=== PATIENT | male | born 1955 | race Caucasian/White ===

== ENCOUNTER 2017-04-03 07:05 | Inpatient (IN) ==
--- NOTE | 2017-04-02 16:03 | Discharge Summary ---
<Dedra Aldana E - Last Filed: 04/02/17 16:01> Date of Encounter: 04/02/17 - Discharge Diagnosis (1) Arthritis of right knee Priority: Primary Status: Chronic (2) HTN (hypertension) Priority: Secondary Status: Chronic Qualifiers: Hypertension type: unspecified Qualified Code(s): I10 - Essential (primary ) hypertension (3) ARELY (obstructive sleep apnea) Priority: Secondary Status: Chronic (4) GERD (gastroesophageal reflux disease) Priority: Secondary Status: Chronic Qualifiers: Esophagitis presence: esophagitis presence not specified Qualified Code(s) : K21.9 - Gastro-esophageal reflux disease without esophagitis (5) 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 Bridging with Lovenox. (9) Obesity (BMI 30-39.9) Priority: Secondary Status: Chronic - Discharge Medications Home Medications: Acetaminophen [Tylenol] 1,000 mg PO Q6HR PRN 03/21/17 [History] Citalopram Hydrobromide [Celexa] 40 mg PO DAILY 03/21/17 [History] Lisinopril/Hydrochlorothiazide [Zestoretic 10-12.5 mg Tablet] 1 tab PO DAILY 08/31 [History] Meloxicam [Mobic] 15 mg PO DAILY 03/21/17 [History] Warfarin [Coumadin] 10 mg PO QPM 03/21/17 [History] cephALEXin [Keflex] 500 mg PO QID #40 capsule 03/21/17 [Rx] OxyCODONE Immed Rel [Roxicodone 5 MG] 5 mg PO Q6HR PRN 7 Days #28 tablet [Rx] Enoxaparin [Lovenox] 40 mg SQ DAILY 04/03/17 [History] Pantoprazole Sodium [Protonix] 40 mg PO DAILY 04/03/17 [History] Allergies/Adverse Reactions: 3 Allergy/AdvReac Type Severity Reaction Status Date / Time No Known Allergies Allergy Verified 03/21/17 14:12 Primary care physician: PCP NONE - Patient Status Disposition: Home Health Service Condition: Good - Discharge Instructions Follow Up With: NONE,PCP [Primary Care Provider] - - Hospital Course Hospital course: Mr. Lechuga is a 61 year old male - Time Spent with Patient Total time spent providing and/or coordinating discharge services: <Dillan Cabrera - Last Filed: 04/05/17 08:08> Date of Encounter: 04/05/17 Time of Encounter: 08:08 - Discharge Diagnosis (1) Status post total right knee replacement Priority: Primary Status: Acute (2) Arthritis of right knee Priority: Primary Status: Chronic (3) HTN (hypertension) Priority: Secondary Status: Chronic Qualifiers: Hypertension type: unspecified Qualified Code(s): I10 - Essential (primary ) hypertension (4) ARELY (obstructive sleep apnea) Priority: Secondary Status: Chronic (5) GERD (gastroesophageal reflux disease) Priority: Secondary Status: Chronic Qualifiers: Esophagitis presence: esophagitis presence not specified Qualified Code(s) : K21.9 - Gastro-esophageal reflux disease without esophagitis (6) 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 Lechuga is a 61 year old male Status post right total knee replacement. The patient had an uneventful postoperative course. They received antibiotics and physical therapy and were discharged in stable condition. There will follow -up in the office in 2 weeks. - Time Spent with Patient Total time spent providing and/or coordinating discharge services:
[2017-04-03] MEDS ORDERED: Ethanol\\Acetic Acid\\Na Ace\\Ben 1,000 ML IRRIG.SOLN IR ONE (07:14)
[2017-04-03] MEDS ORDERED: *HR* FentaNYL (PF) 100 MCG/2 ML VIAL ONE (07:20)
[2017-04-03] MEDS ORDERED: *HR* Propofol 200 MG/20 ML VIAL IVP ONE (07:20)
[2017-04-03] MEDS ORDERED: Lidocaine -MPF 2% 2 ML VIAL ONE (07:20)
[2017-04-03] MEDS ORDERED: *HR* Midazolam HCl 2 MG/2 ML VIAL ONE (07:21)
[2017-04-03] MEDS ORDERED: Lidocaine -MPF 1% 2 ML VIAL ID ONE (07:38)
[2017-04-03] MEDS ORDERED: CeFAZolin Syr 2,000MG/20 ML 2,000 MG/20 ML SYRINGE IVPB ONE (07:38)
[2017-04-03] MEDS ORDERED: Ringers Solution, Lactated 1,000 ML IVC SCH (07:45)
--- NOTE | 2017-04-03 07:56 | History & Physical Report ---
Date of Encounter: 04/03/17 Time of Encounter: 07:55 24 Hour HP Update - Instructions Instructions: If the History and Physical is less than 30 days old and was completed prior to A.M. admission and or procedure and has NOT been updated on calendar day of procedure please complete this update prior to performing procedure. - Update Patient reports changes in Medical Condition: No Changes in examination, assessment, or condition: No Changes in Medication: No Preop tests/diagnostics Reviewed: Yes Surgery Remains Indicated: Yes Consent for Planned Operative Procedure(s) Verified: Yes - Pre-Operative Checklist Preoperative Checklist Indicated: No Prophylactic Antibiotic Ordered: Yes Is VTE Prophylaxis Indicated?: Yes
[2017-04-03] MEDS ORDERED: ROPIVACAINE HCL/PF 0.5% 30 ML VIAL ONE (07:58)
--- NOTE | 2017-04-03 08:01 | Anesthesia Evaluation PreOp ---
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 History: TIA, Other (A/D) Other Medical History: GERD Anesthesia History: No Prior Anesthetic Complications, Past Anesthesia (Knee scope) Alcohol Use: none Drug use: none Medications and Allergies Acetaminophen [Tylenol] 1,000 mg PO Q6HR PRN 03/21/17 [History] Citalopram Hydrobromide [Celexa] 40 mg PO DAILY 03/21/17 [History] Lisinopril/Hydrochlorothiazide [Zestoretic 10-12.5 mg Tablet] 1 tab PO DAILY 08/31 [History] Meloxicam [Mobic] 15 mg PO DAILY 03/21/17 [History] Warfarin [Coumadin] 10 mg PO QPM 03/21/17 [History] cephALEXin [Keflex] 500 mg PO QID #40 capsule 03/21/17 [Rx] OxyCODONE Immed Rel [Roxicodone 5 MG] 5 mg PO Q6HR PRN 7 Days #28 tablet [Rx] Enoxaparin [Lovenox] 40 mg SQ DAILY 04/03/17 [History] Pantoprazole Sodium [Protonix] 40 mg PO DAILY 04/03/17 [History] 3 Allergy/AdvReac Type Severity Reaction Status Date / Time No Known Allergies Allergy Verified 03/21/17 14:12 - Meds/Allergy Pre-op Review Medications Reviewed: Yes Allergies Reviewed: Yes Beta Blockers on Current Med List: No Anesthesia Results - Labs Laboratory Tests 03/21/17 03/21/17 03/21/17 14:07 14:07 14:07 WBC 9.1 Hgb 14.2 Hct 41.9 Plt Count 344 INR 2.2 Sodium 139 Potassium 4.5 Chloride 104 Carbon Dioxide 22 BUN 23 Creatinine 1.04 - Imaging EKG: report reviewed (SINUS RHYTHM INFERIOR MYOCARDIAL INFARCTION, PROBABLY OLD) Anesthesia Exam O2 Sat Height 1.73 m Height 1.73 m Weight 108.862 kg Weight 108.862 kg O2 Sat by Pulse Oximetry 96 Vital Signs Temp Pulse Resp BP Pulse Ox 98.3 F 88 18 126/73 96 04/03/17 07:38 04/03/17 07:38 04/03/17 07:38 04/03/17 07:38 04/03/17 07:38 - HEENT Pupil (Motor): Pupils equal, EOMI Mallampati: III Teeth: Normal Oral Opening: Greater than 3 - CHOCOLATE PACKER LOC: Oriented CHOCOLATE PACKER Motor: Normal RUE, Normal LUE, Normal RLE, Normal LLE, Normal Face CHOCOLATE PACKER Sensory: Normal: RUE, LUE, RLE, LLE, Face - Cardiac Rhythm: Regular Murmur: None JVD: No Carotid Bruit: No - Pulmonary Breath Sounds: bilateral Clear Respiratory Effort: Symmetrical - Additional Findings Coumadin - last dose taken 03/28/2017 Anesthesia Assess/Plan ASA Score: 3 Modified Shannon Scale for Level of Consciousness: Cooperative, oriented, and tranquil Anesthetic Plan: General, Regional (Right Fem. Nerve Block) Monitoring Plan: Standard Monitors Recovery Plan: PACU
[2017-04-03] MEDS ORDERED: Plasma-Lyte A (PH 7.4) 1,000 ML IVC SCH (08:15)
[2017-04-03] MEDS ORDERED: *HR* Promethazine 25 MG/ML VIAL IVP PRN (08:16)
[2017-04-03] MEDS ORDERED: *HR* Labetalol 20 MG/4 ML SYRINGE IVP PRN (08:16)
[2017-04-03] MEDS ORDERED: Acetaminophen IV 1,000 MG/100 ML INFUS..BTL ONE (08:55)
--- NOTE | 2017-04-03 09:00 | Anesthesia Procedures ---
Date of Encounter: 04/03/17 Time of Encounter: 08:50 Procedures: Anesthesia - Nerve Block Procedure Date: 04/03/17 Time: 08:50 Allergies/Adv Reactions: NKDA Surgical Procedure: Right Total Knee Checklist: Correct Patient Identifier, Correct procedure, History checked Correct side: Right Blood Thinner: No Monitor Applied: EKG, BP, Pulse Oximetry Supplemental Oxygen via Nasal Cannula (L/min): 2 Sedation: Versed (mg): 2 Sedation: Fentanyl (mcg): 100 Indication: Post Op Analgesia Pre-op Neuro Deficits: No Block Type: Femoral, Other (Ipac, VANESSA) Catheter placed: No Sterile Technique: Yes Ultrasound used: Yes Anatomy identified: Yes Visual spread of Local: Yes Neuro Stimulation: Yes Nerve Stimulator Range: >0.4 - 0.6 mA Blood on Needle Aspiration: No Smooth Injection of Local: Yes Pain with Injection of Local: No Prep: Chlorhexadine Needle: 22 x 50 mm Stimuplex Local: Ropivacaine (0.5% 30ml, femoral), Other (.25% bupivicaine with 8mg decadron 30ml, 20ml IPAC, 10 VANESSA) Volume (cc): 60ml total Number of Attempts: 1 Complications: None/effective block Vitals: Vital Signs 04/03/17 07:38 04/03/17 08:39 04/03/17 08:44 Temperature 98.3 F Pulse Rate 88 84 82 Respiratory Rate 18 16 12 Blood Pressure 126/73 145/84 121/88 O2 Sat by Pulse Oximetry 96 96 95 04/03/17 08:51 Temperature Pulse Rate 87 Respiratory Rate 12 Blood Pressure 125/76 O2 Sat by Pulse Oximetry 96
[2017-04-03] MEDS ORDERED: Ketamine *HR* 500 MG/10 ML MDV ONE (09:10)
[2017-04-03] MEDS ORDERED: Dexamethasone 4 MG/ML VIAL ONE (09:12)
[2017-04-03] MEDS ORDERED: EPHEDrine 50 MG/ML VIAL ONE (09:15)
[2017-04-03] MEDS ORDERED: *HR* Phenylephrine 10 MG/ML VIAL ONE (09:50)
[2017-04-03] MEDS ORDERED: Ketorolac 30 MG/ML VIAL ONE (10:05)
--- NOTE | 2017-04-03 10:12 | Orthopedic Operative Note ---
Date of procedure: 04/03/17 Pre-op diagnosis: Right knee arthritis Post-op diagnosis: same Procedure: Procedure: Right robotic-assisted Total knee replacement Estimated blood loss: 300 cc Hardware: Metal and polyethylene replacement. [place] Femur: 4 Tibia:4 PS insert: 11 Patella: 39 Exam Under anesthesia: Loss full extension 9 degrees varus alignment 8 degrees as calculated by the robot full flexion and no instability Procedural Notes: Grade 4 arthritic changes medial compartment grade 3 patellofemoral joint Operative procedure: The patient was brought to the operating room and placed on the operating room table. After general anesthesia was administered the operative knee was examined. Findings were noted in the exam under anesthesia. The operative extremity was prepped and draped in sterile surgical fashion. The patient received IV antibiotics prior to skin incision. A standard midline incision was made centered over the patella. The incision was made through the skin and subcutaneous tissue. A medial parapatellar tendon approach was performed. Care was taken to preserve tissue along the medial aspect of the patella. And to protect the patella tendon. The deep MCL was released off the medial tibia. The infra patella fat pad was excised. The patella was everted and cut was made at the level of the insertion of the quadriceps and patella tendon. The patella was sized to a 39 the guide was seated and the lug holes are drilled. Knee was brought into flexion. Patient noted to have a 4 arthritic changes medial compartment grade 3 patellofemoral joint. Steinmann pins were placed in the tibia and the femur for the tibial and femoral arrays respectively. Checkpoints were also placed in the tibia and the femur for calculation purposes. The knee including the femur and the tibial registered. Osteophytes , ACL and PCL were excised at this point. Extension was to and no varus and valgus stresses were assessed, 90 degrees of flexion varus and valgus stresses were assessed and components were adjusted on the computer for the robotic cut positions. Femoral cuts were made first with robotic assistance, these included the anterior cut posterior cuts chamfer cuts. Tibial cut was then performed with robotic assistance as well. Bone fragments were removed, as well as the medial and lateral meniscus. The size 4 femoral guide was seated box cut was made lug holes are drilled. The size 4 tibial tray was seated and prepared with the fin cutter. Trial reduction with the 11 PS Nicole revealed extension of 0 degree and full flexion, 3 degrees varus. No varus valgus instability. Trial reduction revealed excellent patella tracking. All trial components were removed all bony surfaces were irrigated. Tibia was cemented followed by the femur PS Nicole size 11 was seated and secured patella. Patient had similar findings for motion and stability. The knee was closed by the PA. The knee was then irrigated out with 2 L of pulse irrigation. The extensor mechanism was closed with #2 FiberWire suture and #2 PDS suture. The subcutaneous tissue was then irrigated and closed deep with #1 PDS suture superficially with 0 PDS suture and skin was closed with zip tie The patient was then placed in a sterile dressing and a postoperative brace extubated and transferred to recovery room in stable condition. Anesthesia: GETA Surgeon: Dillan Cabrera Condition: stable Disposition: PACU
[2017-04-03] MEDS: *HR* HYDROmorphone (PF) 1 MG/ML SYRINGE IVP PRN ×2 (10:53→11:00)
[2017-04-03 11:08] LABS: Hematocrit 39.3 % (37.5-50.1); Hemoglobin 13.2 g/dL (12.9-16.9)
--- NOTE | 2017-04-03 11:28 | Anesthesia Evaluation Post Op ---
Date of Encounter: 04/03/17 Time of Encounter: 11:27 - Vital Signs Vital Signs: Vital Signs/O2 Sat, Most Current Temp Pulse Resp BP Pulse Ox 97.5 F L 90 16 145/75 94 04/03/17 11:15 04/03/17 11:15 04/03/17 11:15 04/03/17 11:15 04/03/17 11:15 - Lungs Lungs: Clear Ascult./Percussion - Airway Airway: Non-obstructed - Cardiovascular Regular Rate - Mental Status Mental Status: Asleep with brisk response to light stimulation - Pain Pain Scale: 5 Pain Scale used: Numeric (1 - 10) - Nausea Vomiting Nausea Vomiting: Not Present - Hydration Hydration: Ice chips, Has not voided - Discharge PostOp Status: Transfer Patient to floor
[2017-04-03] MEDS ORDERED: *HR* OxyCODONE Immed Rel 5 MG TABLET PO PRN (11:42)
[2017-04-03] MEDS ORDERED: Sennosides 8.6 MG TABLET PO PRN (11:42)
[2017-04-03] MEDS ORDERED: MOM Conc 10 ML UD.LIQ PO PRN (11:42)
[2017-04-03] MEDS ORDERED: Naloxone 0.4 MG/ML INJ IVP PRN (11:42)
[2017-04-03] MEDS ORDERED: Ondansetron 4 MG/2 ML VIAL IVP PRN (11:42)
[2017-04-03] MEDS ORDERED: Temazepam 15 MG CAPSULE PO PRN (11:42)
[2017-04-03] MEDS: CeFAZolin Premix DUPLEX 2,000 MG/50 ML BAG IVPB SCH ×2 (13:12→19:25)
[2017-04-03] MEDS: Ringers Solution, Lactated 1,000 ML IVC SCH (16:21)
[2017-04-03] MEDS ORDERED: *HR* Warfarin 10 MG TABLET PO SCH (18:00)
[2017-04-03] MEDS ORDERED: *HR* Enoxaparin 30 MG/0.3 ML SYRINGE SQ SCH (18:00)
[2017-04-03] MEDS: *HR* Enoxaparin 30 MG/0.3 ML SYRINGE SQ SCH (19:00)
[2017-04-04] MEDS: *HR* Enoxaparin 30 MG/0.3 ML SYRINGE SQ SCH ×2 (05:45→18:23)
[2017-04-04] MEDS: *HR* OxyCODONE Immed Rel 5 MG TABLET PO PRN ×3 (05:49→18:24)
--- NOTE | 2017-04-04 06:48 | Orthopedics Progress Note ---
Date of Encounter: 04/04/17 Time of Encounter: 06:48 - Assessment and Plan (1) Status post total right knee replacement Current Visit: Yes Status: Acute (2) Arthritis of right knee Current Visit: No Status: Chronic (3) HTN (hypertension) Current Visit: No Status: Chronic Qualifiers: Hypertension type: unspecified Qualified Code(s): I10 - Essential (primary ) hypertension (4) ARELY (obstructive sleep apnea) Current Visit: No Status: Chronic (5) GERD (gastroesophageal reflux disease) Current Visit: No Status: Chronic Qualifiers: Esophagitis presence: esophagitis presence not specified Qualified Code(s) : K21.9 - Gastro-esophageal reflux disease without esophagitis (6) 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 Afebrile vital signs stable. Operative extremity: Neurovascularly intact Dressing clean dry and intact Calves nontender Assessment and plan: Continue with postoperative care hct 39 Objective Vital signs: Vital Signs Temp Pulse Resp BP Pulse Ox 04/04/17 04:00 99.5 F 97 16 107/64 93 04/03/17 19:43 97.4 F L 95 16 98/56 97 04/03/17 15:44 98.0 F 105 16 104/67 92 04/03/17 15:00 97.4 F L 98 18 110/72 94 04/03/17 13:00 97.3 F L 91 17 109/74 04/03/17 12:27 97.6 F 17 110/69 98 04/03/17 11:58 97.9 F 92 16 04/03/17 11:35 97.2 F L 88 16 132/78 92 04/03/17 11:25 86 16 126/78 92 04/03/17 11:15 97.5 F L 90 16 145/75 94 04/03/17 11:05 87 18 140/79 92 04/03/17 10:55 96 20 151/77 98 04/03/17 10:45 97.0 F L 76 16 132/81 96 04/03/17 08:51 87 12 125/76 96 04/03/17 08:44 82 12 121/88 95 04/03/17 08:39 84 16 145/84 96 04/03/17 07:38 98.3 F 88 18 126/73 96 Intake and Output 04/03/17 04/03/17 04/04/17 15:59 23:59 07:59 Intake Total 170 / 170 250 / 250 100 / 100 Output Total 300 / 300 Balance -130 / -130 250 / 250 100 / 100 Intake: IV Fluids 50 / 50 50 / 50 Ancef Premix DUPLEX 2,000 mg In 50 / 50 50 / 50 50 ml @ 100 mls/hr IVPB Q8H MALIHA Rx#:[id number] Oral 120 / 120 200 / 200 100 / 100 Output: Urine 0 / 0 Estimated Blood Loss 300 / 300 Other: Meal Dinner Percent of Meal Consumed 100% # Voids 1 1 - Labs CBC & BMP: 04/03/17 10:59 - VTE Documentation of Mechanical Device: Venous foot pump, device Consult Discharge Plan - Plan Referrals: NONE,PCP [Primary Care Provider] -
[2017-04-04 06:49] LABS: Hematocrit 36.4 % (37.5-50.1); Hemoglobin 12.2 g/dL (12.9-16.9)
[2017-04-04 06:54] LABS: INR 1.1; Prothrombin Time 11.5 Seconds (9.4-12.1)
[2017-04-04 06:57] LABS: BUN/Creatinine Ratio 19 (6-26); Blood Urea Nitrogen 19 mg/dL (8-26); Calcium 8.6 mg/dL (8.6-10.8); Carbon Dioxide 23 mEq/L (19-29); Chloride 102 mEq/L (98-109); Glucose 134 mg/dL (70-99); Osmolality,Calculated 286 (280-300); Potassium 4.1 mEq/L (3.5-4.5); Sodium 136 mEq/L (136-145); eGFR For African Americans > 60 (> 60); eGFR For Non-African Americans > 60 (> 60)
--- NOTE | 2017-04-04 12:16 | Event Note ---
Date of Encounter: 04/04/17 Time of Encounter: 12:40 PCR- POD#1 R TKR robotic 04/03 Rick PCR - Patient seen at bedside. 04/04 - H/H 12.2/36.4 Pain control: Adequate Participating in PT. All questions and concerns addressed. Educated on use of incentive spirometer, ambulation, and hydration. Patient educated on post-operative restrictions and care. Addressed: see above. D/C plan: Home with Outpatient therapy
[2017-04-04] MEDS: *HR* HYDROmorphone (PF) 1 MG/ML SYRINGE IVP PRN ×2 (13:50→20:04)
[2017-04-04] MEDS: *HR* Warfarin 5 MG TABLET PO SCH (18:24)
[2017-04-04] MEDS: Ringers Solution, Lactated 1,000 ML IVC SCH (19:53)
[2017-04-05] MEDS: *HR* OxyCODONE Immed Rel 5 MG TABLET PO PRN ×6 (00:18→23:46)
[2017-04-05] MEDS: *HR* Enoxaparin 30 MG/0.3 ML SYRINGE SQ SCH ×2 (05:10→17:01)
[2017-04-05 06:33] LABS: Hematocrit 36.1 % (37.5-50.1)
[2017-04-05 06:39] LABS: INR 1.1; Prothrombin Time 11.6 Seconds (9.4-12.1)
[2017-04-05 07:01] LABS: BUN/Creatinine Ratio 18 (6-26); Blood Urea Nitrogen 17 mg/dL (8-23); Calcium 8.6 mg/dL (8.6-10.3); Carbon Dioxide 28 mEq/L (23-29); Chloride 100 mEq/L (98-107); Glucose 130 mg/dL (70-105); Osmolality,Calculated 281 (280-300); Potassium 3.9 mEq/L (3.5-5.1); Sodium 134 mEq/L (136-145); eGFR For African Americans > 60 (> 60); eGFR For Non-African Americans > 60 (> 60)
--- NOTE | 2017-04-05 08:09 | Orthopedics Progress Note ---
Date of Encounter: 04/05/17 Time of Encounter: 08:09 - Assessment and Plan (1) Status post total right knee replacement Current Visit: Yes Status: Acute (2) Arthritis of right knee Current Visit: No Status: Chronic (3) HTN (hypertension) Current Visit: No Status: Chronic Qualifiers: Hypertension type: unspecified Qualified Code(s): I10 - Essential (primary ) hypertension (4) ARELY (obstructive sleep apnea) Current Visit: No Status: Chronic (5) GERD (gastroesophageal reflux disease) Current Visit: No Status: Chronic Qualifiers: Esophagitis presence: esophagitis presence not specified Qualified Code(s) : K21.9 - Gastro-esophageal reflux disease without esophagitis (6) 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 Afebrile vital signs stable. Operative extremity: Neurovascularly intact Dressing clean dry and intact Calves nontender Assessment and plan: Continue with postoperative care hct 36 dc today Objective Vital signs: Vital Signs Temp Pulse Resp BP Pulse Ox 04/05/17 06:58 98.9 F 98 16 137/73 94 04/05/17 05:02 98.3 F 88 17 122/86 94 04/05/17 01:07 97.9 F 88 16 136/84 96 04/04/17 20:13 99.1 F 105 18 139/64 95 04/04/17 14:21 98.7 F 102 16 153/75 93 04/04/17 10:39 98.2 F 96 15 113/67 96 Intake and Output 04/04/17 04/05/17 04/05/17 23:59 07:59 15:59 Intake Total 50 / 50 Output Total 900 / 900 Balance 50 / 50 -900 / -900 Intake: Oral 50 / 50 Output: Urine 900 / 900 Other: # Voids 1 - Labs CBC & BMP: 04/05/17 06:00 04/05/17 06:00 Labs: Abnormal lab results Hgb 12.0 g/dL (12.9-16.9) L 04/05/17 06:00 Hct 36.1 % (37.5-50.1) L 04/05/17 06:00 Sodium 134 mEq/L (136-145) L 04/05/17 06:00 Glucose 130 mg/dL (70-105) H 04/05/17 06:00 - VTE Documentation of Mechanical Device: Venous foot pump, device Consult Discharge Plan - Plan Referrals: NONE,PCP [Primary Care Provider] -
--- NOTE | 2017-04-05 12:46 | Event Note ---
Date of Encounter: 04/05/17 Time of Encounter: 11:25 PCR- POD#2 R TKR robotic 04/03 Rick PCR - Patient seen at bedside. 04/04 - H/H 12.2/36.4 04/05 - H/H 12.0/36.1 Pain control: Adequate Patient felt that he overdid it in therapy yesterday morning so he declined therapy last night and this morning. He is will to participate again this afternoon to work on stairs in preparation for going home. All questions and concerns addressed. Educated on use of incentive spirometer, ambulation, and hydration. Patient educated on post-operative restrictions and care. Addressed: see above. D/C plan: Home with Outpatient therapy either today or tomorrow based on this afternoon's therapy session
[2017-04-05] MEDS: *HR* Warfarin 5 MG TABLET PO SCH (17:00)
[2017-04-06] MEDS: *HR* OxyCODONE Immed Rel 5 MG TABLET PO PRN ×2 (05:54→10:53)
[2017-04-06] MEDS: *HR* Enoxaparin 30 MG/0.3 ML SYRINGE SQ SCH (05:56)
[2017-04-06 06:15] LABS: INR 1.1; Prothrombin Time 11.9 Seconds (9.4-12.1)
--- NOTE | 2017-04-06 08:36 | Orthopedics Progress Note ---
Date of Encounter: 04/06/17 Time of Encounter: 08:36 - Assessment and Plan (1) Status post total right knee replacement Current Visit: Yes Status: Acute (2) Arthritis of right knee Current Visit: No Status: Chronic (3) HTN (hypertension) Current Visit: No Status: Chronic Qualifiers: Hypertension type: unspecified Qualified Code(s): I10 - Essential (primary ) hypertension (4) ARELY (obstructive sleep apnea) Current Visit: No Status: Chronic (5) GERD (gastroesophageal reflux disease) Current Visit: No Status: Chronic Qualifiers: Esophagitis presence: esophagitis presence not specified Qualified Code(s) : K21.9 - Gastro-esophageal reflux disease without esophagitis (6) 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 Afebrile vital signs stable. Operative extremity: Neurovascularly intact Dressing clean dry and intact Calves nontender Assessment and plan: Continue with postoperative care dc today Objective Vital signs: Vital Signs Temp Pulse Resp BP Pulse Ox 04/06/17 06:49 98.6 F 93 15 130/77 96 04/06/17 03:44 97.4 F L 91 14 165/83 98 04/05/17 23:22 98.6 F 86 16 122/75 96 04/05/17 23:18 98.0 F 93 14 130/81 98 04/05/17 19:57 96 04/05/17 19:52 98.9 F 108 12 145/78 93 04/05/17 16:00 98.1 F 93 16 122/81 96 04/05/17 11:45 98.8 F 101 18 114/68 94 Intake and Output 04/05/17 04/06/17 04/06/17 23:59 07:59 15:59 Intake Total 750 / 750 Balance 750 / 750 Intake: Oral 750 / 750 Other: # Voids 1 Weight 103.419 kg Patient Weight 04/06/17 23:59 Weight 103.419 kg - Labs CBC & BMP: 04/05/17 06:00 04/05/17 06:00 Labs: Abnormal lab results Hgb 12.0 g/dL (12.9-16.9) L 04/05/17 06:00 Hct 36.1 % (37.5-50.1) L 04/05/17 06:00 Sodium 134 mEq/L (136-145) L 04/05/17 06:00 Glucose 130 mg/dL (70-105) H 04/05/17 06:00 - VTE Documentation of Mechanical Device: Venous foot pump, device Consult Discharge Plan - Plan Additional Instructions: Discharge Instructions: Total Knee Replacement Please call [facility] ([phone]), your Primary Care Physician, or report to the Emergency Room if you have any of the following symptoms: Nausea, vomiting, fever greater that 101.5, swelling, chest pain, shortness of breath, increased pain/redness/drainage/odor for your incision site, numbness/ tingling, or any other concerning symptoms. ACTIVITY:Weight-bearing as tolerated. You may progress off support (crutches or walker) as tolerated. MEDICATIONS: Upon discharge resume your home medications. Take all the medications as prescribed. Take a stool softener if taking narcotic pain medications. Stool softeners are only effective if you drink enough fluids. Drink 6-8 glass of water or fluids a day, unless this is not allowed for another health problem. Despite using stool softeners, if you haven't had a bowel movement in 3 days, please switch to a gentle laxative. Gentle laxatives are sold over the counter. You should have a bowel movement within 24 hours, if not call the office. You will be discharged from the hospital with a prescription for pain medication. You are encouraged to decrease the use of narcotic pain medication as tolerated. Should you require a refill, please call the office. [facility] prescribes narcotic pain medication for only 4-6 weeks after surgery. If you require pain medication beyond this time period, you may be referred to your Primary Care Physician or to the Pain Clinic for further evaluation. Plan ahead for refills on pain medication as many narcotics either need to be picked up at the office or mailed. It is best to call 48-72 hours in advance of needing a prescription refill so you don't run out of medication. To help control the post-operative pain, you may take NSAIDs (Aleve,Advil, Motrin, Ibuprofen, Naprosyn) or Tylenol as prescribed on the bottle in addition to the pain medication. ANTICOAGULATION (blood thinners): Continue your Aspirin, Lovenox or Coumadin as prescribed to help prevent a blood clot in the leg or in the lungs. As long as your incision remains dry and you tolerate the NSAIDs (Aleve, Advil, Motrin, ibuprofen, naprosyn), it is OK to use the NSAIDS while you are taking your anticoagulation medication. Should your incision start to drain, stop the NSAID and contact our office. Common symptoms of blood clot in the legs include: localized pain, swelling, calf tenderness, redness or discoloration of the skin. Blood clot in the lung symptoms include: shortness of breath, rapid pulse, sweating, and chest pain that worsens with deep breathing, coughing up blood, lightheadedness, feelings of anxiety. If you experience any of these symptoms notify your physician immediately, go to the emergency room, or if having trouble breathing, call 911. WOUND CARE: Leave the dressing on for 7 to 10days. You may change the dressing if it becomes saturated greater than 50%. Do not get the dressing wet at anytime. Wash your hands with antibacterial soap, rinse and dry prior to any wound care. If you have pepe the visiting nurse or rehab facility can remove the stapes 10-14 days after surgery and place steri-strips across the wound. Leave the steri-strips in place until they fall off on their won. You may let water from the shower run on top of the steri-strips. If you do not have a visiting nurse or rehab facility, you will need to return to the office at 10-14 days for the pepe to be removed. If you have itching or redness around the dressing call the office. FOLLOW-UP: Please follow up with your surgeon in the orthopedic clinic in 4 weeks from the day of surgery. If you have pepe that need to be removed, you will need to come back to the office in 10-14 days from the day of surgery. Referrals: Dedra Aldana PAC [[facility]] - 04/13/17 9:15 am Dillan Cabrera MD [Partnered Physician] - 05/03/17 4:45 pm
[2017-04-06 10:57] VITALS: BP 134/82
== END 2017-04-06 13:54 | disposition home or self-care (01) | DRG 470 ==
LOC: SAMDAY 07:05 → 3NENU 11:40
PROVIDERS: ADMIT Orthopaedic Surgery; ATTEND Orthopaedic Surgery

== ENCOUNTER 2018-07-15 13:03 | Observation (INO) ==
[2018-07-15 13:32] LABS: Hematocrit 45.5 % (37.5-50.1); Hemoglobin 15.6 g/dL (12.9-16.9); Mean Corpuscular HGB Conc 34.3 g/dL (31.6-35.5); Mean Corpuscular Hemoglobin 30.8 pg (28.0-33.3); Mean Corpuscular Volume 89.9 fL (83.0-100.0); Mean Platelet Volume 8.9 fL (9.4-12.4); Platelet Count 338 K/mcL (140-400); Red Blood Count 5.06 M/mcL (4.19-5.50); Red Cell Distribution Width 13.2 % (11.5-14.5)
[2018-07-15 13:47] LABS: INR 2.3; Prothrombin Time 25.8 Seconds (9.4-12.1)
[2018-07-15] MEDS ORDERED: Lidocaine/EPI 1:100k 1% 30 ML VIAL INFILT STA (13:52)
[2018-07-15 13:53] LABS: BUN/Creatinine Ratio 21 (6-26); Blood Urea Nitrogen 24 mg/dL (8-23); Calcium 9.4 mg/dL (8.6-10.3); Carbon Dioxide 26 mEq/L (23-29); Chloride 102 mEq/L (98-107); Glucose 139 mg/dL (70-105); Osmolality,Calculated 288 (280-300); Sodium 136 mEq/L (136-145); eGFR For Non-African Americans > 60 (> 60)
[2018-07-15 13:54] LABS: Troponin I < 0.03 ng/mL (< 0.04)
--- NOTE | 2018-07-15 13:58 | Emergency Department Note ---
Disposition Clinical Impression: Syncope and collapse Facial laceration Qualifiers: Encounter type: initial encounter Qualified Code(s): S01.81XA - Laceration without foreign body of other part of head, initial encounter Chest pain Qualifiers: Chest pain type: unspecified Qualified Code(s): R07.9 - Chest pain, unspecified Disposition: Admitted As Inpatient Condition: Good Reasons to Return/Additional Instructions: Sutures will be removed in approximately 5 days. Continue to monitor for signs of infection including redness, warmness to touch, or purulent drainage Forms: ED Satisfaction Letter General Adult HPI - General Chief complaint: ED Head Injury Stated complaint: Head injury/Syncope Time Seen by Provider: 07/15/18 13:17 Source: patient, family Mode of arrival: wheelchair Limitations: no limitations Nursing Notes Reviewed: Yes Vital Signs Reviewed: Yes - History of Present Illness HPI Narrative: Patient presented to the emergency department after syncopal event. Patient is brought in by private vehicle. Patient was transferred to wheelchair and wheeled back to the room. Patient with generalized weakness, pallor, skin cool and clammy. Patient was attached to monitor and initial vital signs were within normal limits. Blood glucose was greater than 100. EKG without significant ST elevations or depressions. Patient did have a significant fall with laceration to the right eyebrow. Patient went for stroke alert CT given the sudden onset while trying to use the bathroom and initial concern for confusion. CT scan was negative for acute bleed. Upon transfer to the room the patient already feels significantly better. No specific intervention was performed. The patient states that he has been dealing with sinus congestion for the last several days. Patient has had green sinus drainage. Patient has been feeling under the weather and fatigue but has not had any chest pain shortness of breath abdominal pain nausea diarrhea or vomiting. No burning with urination. Patient states that he felt his both legs get weak. He has had issues with a minor heart attack in the past that was diagnosed after a change in EKG but no intervention or workup. Patient also has been told that he had similar symptoms with a TIA. Patient's NIH is 0. Patient with no focal deficits. Patient is back to baseline. Stroke alert was not performed. Patient will be admitted for further evaluation of syncope. Pain Scale: 9 - Related Data Home Medications Medication Instructions Recorded Confirmed Acetaminophen [Tylenol] 1,000 mg PO Q6HR PRN 03/21/17 04/03/17 Citalopram Hydrobromide [Celexa] 40 mg PO DAILY 03/21/17 04/03/17 Lisinopril/Hydrochlorothiazide 1 tab PO DAILY 03/21/17 04/03/17 [Zestoretic 10-12.5 mg Tablet] Meloxicam [Mobic] 15 mg PO DAILY 03/21/17 04/03/17 Warfarin [Coumadin] 10 mg PO QPM 03/21/17 04/03/17 Enoxaparin [Lovenox] 40 mg SQ DAILY 04/03/17 04/03/17 Pantoprazole Sodium [Protonix] 40 mg PO DAILY 04/03/17 04/03/17 Previous Rx's Medication Instructions Recorded cephALEXin [Keflex] 500 mg PO QID #40 capsule 03/21/17 OxyCODONE Immed Rel [Roxicodone 5 5 mg PO Q6HR PRN 7 Days #28 tablet 04/02/17 MG] Allergies Allergy/AdvReac Type Severity Reaction Status Date / Time No Known Allergies Allergy Verified 03/21/17 14:12 Review of Systems: CONSTITUTIONAL: Weakness and fatigue 2 days No weight loss, fever HEENT: Eyes: No visual changes. Ears, Nose, Throat: Sinus congestion. No hearing loss, difficulty talking or unable to swallow. SKIN: No rash or itching. CARDIOVASCULAR: No chest pain, chest pressure or chest discomfort. No palpitations or edema. RESPIRATORY: No shortness of breath, cough or sputum. GASTROINTESTINAL: No anorexia, nausea, vomiting or diarrhea. No abdominal pain or blood. GENITOURINARY: No burning on urination or hematuria. NEUROLOGICAL: Left-sided headache at the region of the laceration, syncopal episode with loss of consciousness. No numbness or tingling in the extremities. No change in bowel or bladder control. MUSCULOSKELETAL: No muscle pain, back pain, joint pain or stiffness. Past Medical History - Past Medical History Medical history: Reports: GERD, hypertension, TIA, other Psychiatric history: Reports: no psych history - Social History Smoking Status: Never smoker Smokeless Tobacco Status: No Alcohol use: Reports: none Drug use: Reports: none Physical Exam General: Patient pale, cool, clammy Head: Normocephalic Atraumatic Eyes: PERRL, EOMI ENT: Airway patent, no stridor Neck: supple, no meningismus Chest: Lungs clear to auscultation bilateral Cardiac: Regular rate and rhythm, no murmurs, rubs or gallops Abdomen: soft, nontender, nondistended; no guarding, rebound, or tenderness to percussion Musculoskeletal: Calves symmetric, nontender. Skin: No rash, normal skin tone. Neuro: Alert and Oriented to person, place, and time; cranial nerves II through XII are intact with full strength and sensation throughout the upper and lower extremities. Finger to nose and heel to hernandez is intact. - General Limitations: no limitations General appearance: alert, in no apparent distress Course - Reevaluation(s) Reevaluation #1: Pt back to baseline. Pt will undergo admission for further workup. Reevaluation #2: On reevaluation the patient had some right shoulder discomfort with standing. The patient has tenderness to use of the deltoid muscle. However the patient has had time to think about his overall symptoms and has been complaining to his about pressure in the center of his chest as well as what he describes as ocular migraines. Pressure in his chest is not been previously evaluated with likely benefit from further workup as an inpatient. - Consultations Consultation #1: Discussed with hospitalist. Pt accepted for admission. Vital Signs Temperature 97.7 F 07/15/18 13:07 Pulse Rate 74 07/15/18 13:07 Respiratory Rate 14 07/15/18 13:07 Blood Pressure 101/70 07/15/18 13:07 O2 Sat by Pulse Oximetry 95 07/15/18 13:07 Temperature 97.7 F 07/15/18 13:07 Pulse Rate 71 07/15/18 15:25 Respiratory Rate 16 07/15/18 15:25 Blood Pressure 135/79 07/15/18 15:25 O2 Sat by Pulse Oximetry 96 07/15/18 15:25 Oxygen Delivery Oxygen Delivery Room Air Procedures - Laceration Laceration 1 Site: face Side (If applicable): right Size (cm): 3 Description: linear Depth: simple, single layer Local Anesthetic: lidocaine 1%, with epi Amount of Anesthesia Used (mL): 4 Pre-repair: wound explored, irrigated extensively Skin layer closed with: nylon Size: 6-0 Number of sutures/pepe: 5 Technique: simple, interrupted Medical Decision Making - Medical Records Medical records reviewed: Yes I reviewed the patient's medical records. - Lab Data Lab results reviewed: Yes I reviewed the patient's lab results. Result diagrams: 07/15/18 13:15 07/15/18 13:15 Lab Results 07/15/18 07/15/18 07/15/18 Range/Units 13:14 13:15 13:15 WBC 15.4 H (4.3-11.1) K/mcL RBC 5.06 (4.19-5.50) M/mcL Hgb 15.6 (12.9-16.9) g/dL Hct 45.5 (37.5-50.1) % MCV 89.9 (83.0-100.0) fL MCH 30.8 (28.0-33.3) pg MCHC 34.3 (31.6-35.5) g/dL RDW 13.2 (11.5-14.5) % Plt Count 338 (140-400) K/mcL MPV 8.9 L (9.4-12.4) fL Immature Gran % 0.5 (0-4) % Seg Neutrophils % 64.4 % Lymphocytes % 22.9 % Monocytes % 9.1 % Eosinophils % 2.5 % Basophils % 0.6 % Neutrophils # 10.2 H (1.6-8.9) K/mcL Lymphocytes # 3.6 (0.6-4.6) K/mcL Monocytes # 1.4 H (0.0-1.3) K/mcL Eosinophils # 0.4 (0.0-0.6) K/mcL Basophils # 0.1 (0.0-0.2) K/mcL PT 25.8 H (9.4-12.1) Seconds INR 2.3 APTT 41.0 H (26.0-36.0) Seconds Sodium (136-145) mEq/L Potassium (3.5-5.1) mEq/L Chloride (98-107) mEq/L Carbon Dioxide (23-29) mEq/L BUN (8-23) mg/dL Creatinine (0.70-1.30) mg/dL Est GFR ( Amer) (> 60) Est GFR (Non-Af Amer) (> 60) BUN/Creatinine Ratio (6-26) Glucose (70-105) mg/dL POC Glucose 127 H (70-99) mg/dL Calculated Osmolality (280-300) Calcium (8.6-10.3) mg/dL Troponin I (< 0.04) ng/mL Urine Color (Yellow) Urine Clarity (Clear) Urine pH (5.0-8.0) pH Units Ur Specific [place] (1.010-1.025) Urine Protein (Neg-Trace) mg/dL Urine Glucose (UA) (Normal) mg/dL Urine Ketones (Negative) mg/dL Urine Blood (Negative) Urine Nitrite (Negative) Urine Bilirubin (Negative) Urine Urobilinogen (Normal) mg/dL Ur Leukocyte Esterase (Negative) Ur Culture Indicated? (NO) 07/15/18 07/15/18 Range/Units 13:15 15:21 WBC (4.3-11.1) K/mcL RBC (4.19-5.50) M/mcL Hgb (12.9-16.9) g/dL Hct (37.5-50.1) % MCV (83.0-100.0) fL MCH (28.0-33.3) pg MCHC (31.6-35.5) g/dL RDW (11.5-14.5) % Plt Count (140-400) K/mcL MPV (9.4-12.4) fL Immature Gran % (0-4) % Seg Neutrophils % % Lymphocytes % % Monocytes % % Eosinophils % % Basophils % % Neutrophils # (1.6-8.9) K/mcL Lymphocytes # (0.6-4.6) K/mcL Monocytes # (0.0-1.3) K/mcL Eosinophils # (0.0-0.6) K/mcL Basophils # (0.0-0.2) K/mcL PT (9.4-12.1) Seconds INR APTT (26.0-36.0) Seconds Sodium 136 (136-145) mEq/L Potassium 4.0 (3.5-5.1) mEq/L Chloride 102 (98-107) mEq/L Carbon Dioxide 26 (23-29) mEq/L BUN 24 H (8-23) mg/dL Creatinine 1.12 (0.70-1.30) mg/dL Est GFR ( Amer) > 60 (> 60) Est GFR (Non-Af Amer) > 60 (> 60) BUN/Creatinine Ratio 21 (6-26) Glucose 139 H (70-105) mg/dL POC Glucose (70-99) mg/dL Calculated Osmolality 288 (280-300) Calcium 9.4 (8.6-10.3) mg/dL Troponin I < 0.03 (< 0.04) ng/mL Urine Color Yellow (Yellow) Urine Clarity Clear (Clear) Urine pH 6.0 (5.0-8.0) pH Units Ur Specific [place] 1.019 (1.010-1.025) Urine Protein Negative (Neg-Trace) mg/dL Urine Glucose (UA) Normal (Normal) mg/dL Urine Ketones Negative (Negative) mg/dL Urine Blood Negative (Negative) Urine Nitrite Negative (Negative) Urine Bilirubin Negative (Negative) Urine Urobilinogen Normal (Normal) mg/dL Ur Leukocyte Esterase Negative (Negative) Ur Culture Indicated? NO (NO) - Radiology Data Radiology results reviewed: Yes I reviewed the patient's radiology results. Head CT 07/15/18 13:16 IMPRESSION: 1. No acute intracranial abnormality. Critical results were called by Dr. Tor Epperson MD to Donal Taylor on 07/15/2018 at 13:39. D/ / Tor Epperson MD / Tor Epperson MD Interpreting Provider: Tor Epperson MD Chest X-Ray 07/15/18 13:17 IMPRESSION: 1. No acute radiographic abnormality in the chest. D/ / Jimy Rondon MD / Jimy Rondon MD Interpreting Provider: Jimy Rondon MD - EKG Data EKG #1 EKG attestation: Yes I reviewed and interpreted this EKG. EKG results narrative: EKG shows sinus rhythm with heart rate 60 HI 201 QRS 120 QTC 436ST elevation or depression. Patient in normal sinus rhythm without signs of heart block. No significant change compared to 03/21/17 other than relative bradycardia.
[2018-07-15 13:59] LABS: Basophils # 0.1 K/mcL (0.0-0.2); Basophils % 0.6 %; Eosinophils # 0.4 K/mcL (0.0-0.6); Eosinophils % 2.5 %; Immature Granulocytes % 0.5 % (0-4); Lymphocytes # 3.6 K/mcL (0.6-4.6); Lymphocytes % 22.9 %; Monocytes # 1.4 K/mcL (0.0-1.3); Monocytes % 9.1 %; Neutrophils # 10.2 K/mcL (1.6-8.9); Segmented Neutrophils % 64.4 %
[2018-07-15] MEDS ORDERED: 0.9 % Sodium Chloride 1,000 ML IVC ONE (15:11)
[2018-07-15 15:30] LABS: Bilirubin,Urine Negative (Negative); Blood,Urine Negative (Negative); Clarity,Urine Clear (Clear); Color,Urine Yellow (Yellow); Glucose,Urine (UA) Normal (Normal); Ketones,Urine Negative (Negative); Leukocyte Esterase,Urine Negative (Negative); Nitrite,Urine Negative (Negative); Protein,Urine Negative (Neg-Trace); Specific Gravity,Urine 1.019 (1.010-1.025); Urobilinogen,Urine Normal (Normal)
[2018-07-15] MEDS ORDERED: Naloxone 0.4 MG/ML INJ IVP PRN (16:21)
--- NOTE | 2018-07-15 17:21 | Internal Med History&Physical ---
Date of Encounter: 07/15/18 Time of Encounter: 17:00 Internal Medicine - H&P: HPI Chief complaint: Passing out episode today with confusion afterwards History of present illness: Mr. Lechuga is a 62 year old male with pmh of factor V Leiden mutation on coumadin, CAD with prior heart attack, hypertension, TIA presenting with complaints of passing out and hitting his head today. Patient notes he went to use the rest room today sometime around noon, and began to experience a burning sensation in his head, after which he felt like he needed to rest. He took one step and next thing his saw him stumble and hit his head on a door he was facing and crumple to the ground. He was out for about 5 minutes and confused afterwards. Denies any tongue biting, or urinary incontinence but cannot recall events post passing out. He had also been experiencing some upper respiratory symptoms with greenish nasal discharge for about a week. Also complains of intermittent left sided chest pain that has been going on for a week as well In the ER, he had a CT head done which was negative and he is being admitted for further management Past Med Surg Social Fam HX - Past Medical History Medical history: GERD, hypertension, TIA, other Additional medical history: factor v leiden, upper GI, Psychiatric history: no psych history - Social History Smoking Status: Never smoker Smokeless Tobacco Status: No Alcohol use: none Drug use: none Internal Medicine - H&P: Meds Acetaminophen [Tylenol] 1,000 mg PO Q6HR PRN 03/21/17 [History] Citalopram Hydrobromide [Celexa] 40 mg PO DAILY 03/21/17 [History] Lisinopril/Hydrochlorothiazide [Zestoretic 10-12.5 mg Tablet] 1 tab PO DAILY 03/21/17 [History] Meloxicam [Mobic] 7.5 mg PO DAILY 03/21/17 [History] Warfarin [Coumadin] 10 mg PO QPM 03/21/17 [History] Pantoprazole Sodium [Protonix] 40 mg PO DAILY 04/03/17 [History] Cyclobenzaprine [Flexeril] 10 mg PO TID PRN 07/15/18 [History] Allergy/AdvReac Type Severity Reaction Status Date / Time No Known Allergies Allergy Verified 03/21/17 14:12 All Systems PM: A 10-system review of systems was performed and is negative for pertinent findings except as documented above in the HPI. - Constitutional Constitutional: no chills, no fever(s), no night sweats - EENT Eyes: no change in vision, no discharge, no pain, no photophobia Ears: no ear discharge, no ear pain, no tinnitus Nose, mouth and throat: nasal discharge, no dysphagia, no neck pain, no sore throat - Cardiovascular Cardiovascular ROS IM: chest pain, no diaphoresis, no dyspnea, no lightheadedness, no palpitations, no syncope - Respiratory Respiratory: no cough, no dyspnea, no wheezing, no excessive phlegm production - Gastrointestinal Gastrointestinal: no abdominal pain, no diarrhea, no hematemesis, no hematochezia, no melena, no nausea, no vomiting - Musculoskeletal Musculoskeletal ROS IM: no numbness, no tingling - Integumentary Integumentary IM: no rash, no unusual bruising - Neurological Neurological ROS: confusion, dizziness, lack of coordination, no convulsions, no focal weakness, no numbness, no tingling, no tremor(s) - Hematologic/Lymphatic Hematologic/Lymphatic: no easy bruising - Constitutional Vitals: Temp Pulse Resp BP Pulse Ox 98.0 F 69 16 145/82 98 07/15/18 16:40 07/15/18 16:40 07/15/18 16:40 07/15/18 16:40 07/15/18 16:40 Exam: Gen - Awake, alert, oriented x 3, no acute distress HEENT - NCAT, PERRLA, EOMI, hearing grossly intact, oropharynx benign CV - RRR, normal S1 and S2, no M/R/G, no BLE edema Resp - Normal WOB, CTAB, no W/R/R GI - Soft, NT/ND, no masses, normal bowel sounds, Skin - Warm, dry, no rashes/lesions/ulcers Psych - Normal mood and affect, no depression or anxiety - Head Head exam: Present: atraumatic, normocephalic - Eye Eye exam: Present: PERRL, conjuntiva pink, sclera anicteric Pupils: Present: PERRL - Neck Neck exam general surgery: Present: supple, trachea midline. Absent: lymphadeno nilsa - Respiratory Respiratory exam: Present: CTAB. Absent: accessory muscle use, rales, rhonchi, wheezes - Cardiovascular Cardiovascular exam: Present: RRR, +S1, +S2. Absent: diastolic murmur, gallop, rubs, systolic murmur - GI/Abdominal GI/Abdominal exam: Present: normal bowel sounds, soft, no peritoneal signs. Absent: distended, tenderness - Extremities Exam Extremities exam: Present: warm, radial pulses palpable and symmetrical. Ab sent: calf tenderness, cyanotic, pedal edema - Neurological Exam Neurological exam: Present: CN II-XII intact, oriented X3, no focal deficits. Absent: pronater drift, facial droop, speech deficit - Skin Skin exam: Present: dry, intact Internal Med - H&P Results - Labs CBC & Chem 7: 07/15/18 13:15 07/15/18 13:15 Labs: Short CBC 07/15/18 Range/Units 13:15 WBC 15.4 H (4.3-11.1) K/mcL Hgb 15.6 (12.9-16.9) g/dL Hct 45.5 (37.5-50.1) % Plt Count 338 (140-400) K/mcL Neutrophils # 10.2 H (1.6-8.9) K/mcL BMP 07/15/18 13:15 Sodium 136 Potassium 4.0 Chloride 102 Carbon Dioxide 26 BUN 24 H Creatinine 1.12 Glucose 139 H Calcium 9.4 Cardiac Enzymes 07/15/18 Range/Units 13:15 Troponin I < 0.03 (< 0.04) ng/mL Urine 07/15/18 Range/Units 15:21 Urine Color Yellow (Yellow) Urine Clarity Clear (Clear) Urine pH 6.0 (5.0-8.0) pH Units Ur Specific [place] 1.019 (1.010-1.025) Urine Protein Negative (Neg-Trace) mg/dL Urine Glucose (UA) Normal (Normal) mg/dL - Impressions ITS Impressions Head CT 07/15/18 13:16 IMPRESSION: 1. No acute intracranial abnormality. Critical results were called by Dr. Tor Epperson MD to Donal Taylor on 07/15/2018 at 13:39. D/ / Tor Epperson MD / Tor Epperson MD Interpreting Provider: Tor Epperson MD Chest X-Ray 07/15/18 13:17 IMPRESSION: 1. No acute radiographic abnormality in the chest. D/ / Jimy Rondon MD / Jimy Rondon MD Interpreting Provider: Jimy Rondon MD Shoulder X-Ray 07/15/18 15:35 IMPRESSION: No acute osseous abnormality. D/ / 07/15/2018 16:11:50 Rigoberto Hancock MD / kade Interpreting Provider: Rigoberto Hancock MD - Assessment and Plan (1) Syncope and collapse Current Visit: Yes Status: Acute Assessment and plan: Pt had episode of syncope and collapse with confusion afterwards. Differentials include syncope 2/2 to dehdyration vs TIA/stroke vs seizures CT head negative. Obtain MRI brain, echo and carotid ultrasound. neuro consult to rule out seizures and recs appreciated IV fluids for possible dehydration (2) Chest pain Current Visit: Yes Status: Acute Assessment and plan: Has risk factors with age and prior CAD. complains of left sided chest pain Follow up troponins, echo and stress test Qualifiers: Chest pain type: unspecified Qualified Code(s): R07.9 - Chest pain, unspecified (3) Sinusitis Current Visit: Yes Status: Acute Assessment and plan: Has leukocytosis and a discharge. Will obtain cultures and start on unasyn Qualifiers: Sinusitis location: frontal Qualified Code(s): J01.10 - Acute frontal sinusitis, unspecified (4) Factor V deficiency Current Visit: No Status: Chronic Assessment and plan: Continue warfarin (5) HTN (hypertension) Current Visit: Yes Status: Chronic Assessment and plan: Hold antihypertensives due to borderline low BP Qualifiers: Hypertension type: unspecified Qualified Code(s): I10 - Essential (primary) hypertension (6) DVT prophylaxis Current Visit: Yes Status: Acute Assessment and plan: On coumadin - Time Spent With Patient Total time spent is greater than 50% in coordination of care (as documented) at patient's floor/unit and/or counseling patient:
[2018-07-15] MEDS ORDERED: *HR* Warfarin 10 MG TABLET PO SCH (18:00)
[2018-07-15] MEDS ORDERED: traMADol 50 MG TABLET PO PRN (18:13)
[2018-07-15] MEDS: Ampicillin/Sulbactam 1,500 MG in 0.9 % Sodium Chloride Mini Bag 100 ML IVPB SCH ×2 (18:15→23:05)
[2018-07-15] MEDS: 0.9 % Sodium Chloride 1,000 ML IVC SCH (18:15)
[2018-07-15] MEDS: Acetaminophen 325 MG TABLET PO PRN (19:37)
[2018-07-15 21:32] LABS: Adenovirus Not Detected (Not Detect); Coronavirus 229E Not Detected (Not Detect); Coronavirus HKU1 Not Detected (Not Detect); Coronavirus NL63 Not Detected (Not Detect); Coronavirus OC43 Not Detected (Not Detect); Human Metapneumovirus Not Detected (Not Detect); Human Rhinovirus/Enterovirus Not Detected (Not Detect); Influenza A Subtype 2009 H1 Not Detected (Not Detect); Influenza A Untypeable Not Detected (Not Detect); Influenza B Not Detected (Not Detect); Parainfluenza Virus 1 Not Detected (Not Detect); Parainfluenza Virus 2 Not Detected (Not Detect); Parainfluenza Virus 3 Not Detected (Not Detect); Parainfluenza Virus 4 Not Detected (Not Detect); Respiratory Syncytial Virus Not Detected (Not Detect)
[2018-07-15 21:33] LABS: Bordetella Pertussis Not Detected (Not Detect); Chlamydophila pneumoniae Not Detected (Not Detect); Mycoplasma pneumoniae Not Detected (Not Detect)
[2018-07-16 03:09] LABS: Basophils # 0.1 K/mcL (0.0-0.2); Basophils % 0.5 %; Eosinophils # 0.2 K/mcL (0.0-0.6); Eosinophils % 2.3 %; Hematocrit 42.1 % (37.5-50.1); Hemoglobin 14.1 g/dL (12.9-16.9); Immature Granulocytes % 0.3 % (0-4); Lymphocytes # 2.4 K/mcL (0.6-4.6); Lymphocytes % 24.4 %; Mean Corpuscular HGB Conc 33.5 g/dL (31.6-35.5); Mean Corpuscular Hemoglobin 30.1 pg (28.0-33.3); Mean Platelet Volume 9.1 fL (9.4-12.4); Monocytes # 1.1 K/mcL (0.0-1.3); Monocytes % 10.8 %; Neutrophils # 6.1 K/mcL (1.6-8.9); Platelet Count 290 K/mcL (140-400); Red Blood Count 4.68 M/mcL (4.19-5.50); Red Cell Distribution Width 13.1 % (11.5-14.5); Segmented Neutrophils % 61.7 %
[2018-07-16 03:17] LABS: INR 2.7; Prothrombin Time 30.5 Seconds (9.4-12.1)
[2018-07-16 03:30] LABS: BUN/Creatinine Ratio 22 (6-26); Blood Urea Nitrogen 20 mg/dL (8-23); Calcium 9.1 mg/dL (8.6-10.3); Carbon Dioxide 25 mEq/L (23-29); Chloride 104 mEq/L (98-107); Glucose 100 mg/dL (70-105); Magnesium 2.2 mg/dL (1.6-2.6); Osmolality,Calculated 289 (280-300); Phosphorous 2.8 mg/dL (2.7-4.5); Sodium 138 mEq/L (136-145); eGFR For Non-African Americans > 60 (> 60)
[2018-07-16] MEDS: 0.9 % Sodium Chloride 1,000 ML IVC SCH (04:01)
[2018-07-16] MEDS: Ampicillin/Sulbactam 1,500 MG in 0.9 % Sodium Chloride Mini Bag 100 ML IVPB SCH ×2 (05:47→12:42)
[2018-07-16] MEDS ORDERED: Regadenoson 0.4 MG/5 ML SYRINGE IVP ONE (06:01)
[2018-07-16] MEDS ORDERED: Perflutren Lipid Microsphere 1.3 ML in 0.9 % Sodium Chloride 8.7 ML IVP ONE (07:58)
--- NOTE | 2018-07-16 08:33 | Neurology - Consult Note ---
Date of Encounter: 07/16/18 Time of Encounter: 08:24 Assessment and Plan (1) Syncope and collapse Current Visit: Yes Status: Acute 62-year-old male who presented after syncopal episode. Patient was urinating when suddenly his head became hot and burning. While walking to bed he fell forward hitting his head against door and collapsing to the ground and was unresponsive for at least a minute according to . He denied tongue biting, convulsions, loss of bowel and bladder function, chest pain, palpitations, dizziness. No history of seizures or CVA. Recent illness of sinus infection. Never had anything like this before. -Etiology for syncope is unclear at this time but may be cardiac, micturition syncope, dehydration. Consider but less likely seizure. Unlikely to be neurological. -Risk factors factor V leidon mutation, CAD, TIA -BMP, urinalysis, respiratory infectious panel unremarkable. Chest x-ray and shoulder x-ray were negative. -Head CT negative for acute intracranial abnormality. -Nuclear stress test showing no ischemia or infarction. -Brain MRI showing no acute infarct, intracranial hemorrhage, or significant mass effect. Chronic small vessel ischemic white matter disease in diffuse cerebral volume loss. -TTE: EF50-50%, mild diastolic dysfunction, no PFO. Recommendations: The etiology does not appear to be neurologic, brain MRI negative. But consider cardiac etiology or micturition syncope since the patient was urinating at the time this occurred. Will await further imaging including carotid ultrasound, EEG. Will continue to follow. History of Present Illness Chief complaint: Syncopal episode with confusion query seizures vs TIA HPI: Mr. Lechuga is a 62 year old male with past medical history of factor V Leiden mutation on Coumadin, CAD, TIA, HTN who presented to [facility] complaining of passing out with confusion afterwards. Neurology was consulted on 07/16/2018 for syncopal episode with confusion query seizures vs TIA. Upon my examination of the patient is resting comfortably in bed and is alert and oriented times 3. He reports that yesterday around noon he was urinating in the bathroom when all of a sudden he felt like his head was hot and burning. He then started to walk to the bedroom and then his who was present at the time stated that he mumbled a couple things and then fell forward face 1st into a door and collapsed to the ground. He stated his told him he was out for at least a minute when he finally started to wake up but was confused. He does not remember passing out. He denied biting his tongue, loss of bladder or bowel function, headache, convulsions, fever, chills, chest pain, palpitations, dizziness, shortness of breath. He also reports that in the ED while he was in a wheelchair he passed out again for a few minutes and was asymptomatic during that time. He said he has had a sinus infection for the past 3 days with green nasal discharge. He also reported that for the past week he has noticed some chest pain on the left side but not during syncopal episode. He has been compliant with his medications including his Coumadin. He has never had a seizure. 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 He denied smoking, drug use, alcohol use. He reports having a TIA 20 years ago. He is a family history of heart disease in his parents and siblings. In the emergency department initial vitals were unremarkable. WBC 15.4, hemoglobin 15.6, platelets 338. INR 2.3. BMP, urinalysis, respiratory infectious panel unremarkable. Head CT negative for acute intracranial abnormality. Chest x-ray and shoulder x-ray were negative. The patient was started on fluids and unasyn for dehydration and possible sinusitis. Past Med Surg Social Fam HX - Past Medical History Attestation: Yes The following information was validated with the patient. Source: patient Medical history: GERD, hypertension, TIA, other Additional medical history: factor v leiden, upper GI, Psychiatric history: no psych history - Past Surgical History Surgical History: orthopedic, other Additional surgical history: knee replacement - Social History Smoking Status: Never smoker Smokeless Tobacco Status: No Alcohol use: none Drug use: none - Family History Mother Living Status: Hx Family Cardiac Disorders: Yes (CHF) Hx Family HEENT Disorders: Yes Father Living Status: Hx Family Cardiac Disorders: Yes (CHF) Hx Family Neurologic Disorders: Yes (parkinsons) Hx Family HEENT Disorders: Yes Medications and Allergies Acetaminophen [Tylenol] 1,000 mg PO Q6HR PRN 03/21/17 [History] Citalopram Hydrobromide [Celexa] 40 mg PO DAILY 03/21/17 [History] Lisinopril/Hydrochlorothiazide [Zestoretic 10-12.5 mg Tablet] 1 tab PO DAILY 03/21/17 [History] Meloxicam [Mobic] 7.5 mg PO DAILY 03/21/17 [History] Warfarin [Coumadin] 10 mg PO QPM 03/21/17 [History] Pantoprazole Sodium [Protonix] 40 mg PO DAILY 04/03/17 [History] Cyclobenzaprine [Flexeril] 10 mg PO TID PRN 07/15/18 [History] Allergy/AdvReac Type Severity Reaction Status Date / Time No Known Allergies Allergy Verified 03/21/17 14:12 All Systems: The remainder of the systems were reviewed and are negative - Constitutional Constitutional ROS IM: no chills, no fever(s), no frequent falls, no headache(s), no malaise, no weakness - Nose, Mouth, Throat Nose, mouth and throat: nasal congestion, sinus pain, sinus pressure, no dizziness, no vertigo - Cardiovascular Cardiovascular ROS IM: chest pain, no orthopnea, no palpitations - Respiratory Respiratory IM: no cough, no dyspnea, no hemoptysis - Gastrointestinal Gastrointestinal: no abdominal pain, no nausea, no vomiting - Genitourinary Genitourinary ROS: no dysuria, no urinary incontinence - Musculoskeletal Musculoskeletal ROS IM: no myalgias, no neck pain, no tingling - Neurological Neurological ROS: syncope, no abnormal speech, no behavioral changes, no confusion, no disequilibrium, no dizziness, no frequent falls, no vertigo, no weakness Physical Examination - Vital Signs Vital Signs: Initial Vital Signs Temp Pulse Resp BP Pulse Ox 97.7 F 74 14 101/70 95 07/15/18 13:07 07/15/18 13:07 07/15/18 13:07 07/15/18 13:07 07/15/18 13:07 - Constitutional General appearance: comfortable - Neurologic Sensorimotor examination: intact Detailed motor examination: grossly full strength in all extremities Motor examination - right side: 5/5: deltoids, biceps, triceps, sales assistant entertainment and media, hip flexors, quadriceps, toe extension (EHL), plantarflexion Motor examination - left side: 5/5: deltoids, biceps, triceps, hip flexors, sales assistant entertainment and media, quadriceps, toe extension (EHL), plantarflexion Detailed sensory examination: intact, light touch Reflex and gait examination: intact Reflexes: Biceps: 2+, Triceps: 2+, Brachioradialis: 2+, Patella: 2+ Mental Status Examination: awake, alert, oriented to person, oriented to place, oriented to time, follows commands appropriately, answers questions appropriately, no aphasia, makes eye contact Cranial nerve examination: PERRL, mastication intact, no facial asymmetry is present, no dysarthria, hearing is intact symmetrically, soft palate elevates bilaterally upon phonation, flexes SCM and trapezius muscles symmetrically with full power Results - Laboratory Findings CBC and BMP: 07/16/18 02:27 07/16/18 02:27 Abnormal lab findings: Abnormal lab results MPV 9.1 fL (9.4-12.4) L 07/16/18 02:27 PT 30.5 Seconds (9.4-12.1) H 07/16/18 02:27 APTT 41.0 Seconds (26.0-36.0) H 07/15/18 13:15 POC Glucose 127 mg/dL (70-99) H 07/15/18 13:14 Consult Discharge Plan - Plan Referrals: Emily Telles MD [Primary Care Provider] -
[2018-07-16] MEDS: Acetaminophen 325 MG TABLET PO PRN (12:42)
--- NOTE | 2018-07-16 15:22 | Discharge Summary ---
- NOTES TO OUTPATIENT PROVIDER Notes to Outpatient Provider: f/u with PCP in one week. Orders not resulted at time of discharge: Pending orders 07/15/18 17:53 Culture,Blood [BC] Routine 07/16/18 05:30 NM amanda perf SPECT multi [NM] Routine Date of Encounter: 07/16/18 Time of Encounter: 15:19 - Discharge Diagnosis (1) Chest pain Priority: Primary Status: Acute Qualifiers: Chest pain type: unspecified Qualified Code(s): R07.9 - Chest pain, unspecified (2) Syncope and collapse Priority: Primary Status: Acute (3) HTN (hypertension) Priority: Secondary Status: Chronic Qualifiers: Hypertension type: unspecified Qualified Code(s): I10 - Essential (primary) hypertension (4) Factor V deficiency Priority: Secondary Status: Chronic (5) Sinusitis Priority: Primary Status: Acute Qualifiers: Sinusitis location: frontal Qualified Code(s): J01.10 - Acute frontal sinusitis, unspecified (6) DVT prophylaxis Priority: Secondary Status: Acute Hospital course: Mr. Lechuga is a 62 year old male with PMH of factor V Leiden mutation on coumadin, CAD, hypertension, TIA presenting with complaints of passing out and hitting his head today. Patient notes he went to use the rest room sometime around noon, and began to experience a burning sensation in his head, after which he felt like he needed to rest. He took one step and next thing his saw him stumble and hit his head on a door he was facing and crumple to the ground. He was out for about 5 minutes and confused afterwards. In the ER, he had a CT head done which was negative and he is being admitted for further management. He was admitted in the hospital and placed him on telemetry monitor. His serial troponin came back is negative. He did go for nuclear stress test which came back is negative. His brain MRI did not show any acute ischemia/infarction. His carotid Doppler showed non-stenotic bilateral plaque formation. Patient syncopal episode seems to most likely vasovagal reaction. Pt was evaluated by Neurology too. Waiting on EEG report. Will d/c him home in stable condition today after EEG report. - Time Spent with Patient Total time spent providing and/or coordinating discharge services: - Discharge Medications Prescriptions: Continue Acetaminophen [Tylenol] 1,000 mg PO Q6HR PRN PRN Reason: Pain Meloxicam [Mobic] 7.5 mg PO DAILY Lisinopril/Hydrochlorothiazide [Zestoretic 10-12.5 mg Tablet] 1 tab PO DAILY Warfarin [Coumadin] 10 mg PO QPM Citalopram Hydrobromide [Celexa] 40 mg PO DAILY Pantoprazole Sodium [Protonix] 40 mg PO DAILY Cyclobenzaprine [Flexeril] 10 mg PO TID PRN PRN Reason: muscle spasms Home Medications: Acetaminophen [Tylenol] 1,000 mg PO Q6HR PRN 03/21/17 [History] Citalopram Hydrobromide [Celexa] 40 mg PO DAILY 03/21/17 [History] Lisinopril/Hydrochlorothiazide [Zestoretic 10-12.5 mg Tablet] 1 tab PO DAILY 03/21/17 [History] Meloxicam [Mobic] 7.5 mg PO DAILY 03/21/17 [History] Warfarin [Coumadin] 10 mg PO QPM 03/21/17 [History] Pantoprazole Sodium [Protonix] 40 mg PO DAILY 04/03/17 [History] Cyclobenzaprine [Flexeril] 10 mg PO TID PRN 07/15/18 [History] Allergies/Adverse Reactions: Allergy/AdvReac Type Severity Reaction Status Date / Time No Known Allergies Allergy Verified 03/21/17 14:12 Date of admission: 07/15/18 15:49 Primary care physician: Emily Telles MD Consults: 07/15/18 17:16 Consult to Neurology [CONS] Routine Consulting Provider: Neurology [facility] Reason for Consult: syncopal episode with confusion query seizures vs TIA Call Completed: No 07/16/18 13:03 Consult to Interpret Exam [CONS] Routine Consulting Provider: Dewayne Giordano Consult to Interpret Exam: Interpret EEG - Constitutional Vitals: Temp Pulse Resp BP Pulse Ox 98.0 F 78 17 128/67 98 07/16/18 15:08 07/16/18 15:08 07/16/18 15:08 07/16/18 15:08 07/16/18 15:08 General appearance: Present: cooperative, A&O X 3, no acute distress, answers questions appropriately Exam: Gen: Alert, awake, Oriented to time,place and person Chest: Diminished breath sounds B/L, No wheezing, No crackles, No rales Heart: S1S2+ RRR No murmurs Abd: Soft, NT, BS +, No organomegaly Ext: No edema, pulses are palpable, No calf tenderness Neuro : Benign findings Skin: No rash. - Patient Status Disposition: Home, Self-Care Condition: Good Overall status at discharge: patient is back to baseline - Discharge Instructions Follow Up With: Emily Telles MD [Primary Care Provider] - - Diet and Activity Activity: increase activity as tolerated Diet: low salt diet
--- NOTE | 2018-07-16 16:00 | EEG/EMG/Oth Biometrics Report ---
EEG Procedure Report Date of procedure: 07/16/18 EEG Procedure: Routine EEG Procedure Note: This EEG was acquired with standard international 1020 system with EKG recording. The background EEG activity was characterized by the presence of low amplitude, fast activity posteriorly. The background activity was reactive to eye openings. Sleep stages were not identified during this tracing. Drowsiness was characterized by drop off of posterior dominant Alpha rhythm. There are no electrographic seizures identified during this tracing. There are no epileptiform discharges and focal slowing noted during this recording. Photic stimulation produced and produced no abnormalities. Hyperventilation procedure not performed EKG tracing showed no significant cardiac dysrhythmia. Impression: This is essentially a normal awake and drowsy EEG. Clinical Correlation: Normal EEGs, however, do not exclude epilepsy. Clinical correlation is advised.
[2018-07-16 16:25] VITALS: BP 153/84
--- NOTE | 2018-07-18 06:19 | Electrocardiograph Report ---
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
--- NOTE | 2018-07-19 09:54 | Electrocardiograph Report ---
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
== END 2018-07-16 18:13 | disposition home or self-care (01) ==
LOC: 3BNU 13:03 → EMEROOARM 13:03 → SUATTDRO 15:49 → 3BNU 16:35
PROVIDERS: ADMIT Internal Medicine Nephrology; ATTEND Family Medicine

== ENCOUNTER 2020-06-27 21:19 | Observation (INO) ==
[2020-06-27] MEDS ORDERED: Aspirin 81 MG TAB.CHEW PO ONE (21:30)
[2020-06-27 22:00] LABS: Basophils # 0.1 K/mcL (0.0-0.2); Eosinophils # 0.3 K/mcL (0.0-0.6); Hematocrit 41.9 % (37.5-50.1); Immature Granulocytes % 0.2 % (0-4); Lymphocytes # 1.9 K/mcL (0.6-4.6); Lymphocytes % 22.2 %; Mean Corpuscular HGB Conc 33.4 g/dL (31.6-35.5); Mean Corpuscular Hemoglobin 29.7 pg (28.0-33.3); Mean Platelet Volume 8.9 fL (9.4-12.4); Monocytes # 1.1 K/mcL (0.0-1.3); Monocytes % 12.1 %; Neutrophils # 5.4 K/mcL (1.6-8.9); Platelet Count 347 K/mcL (140-400); Red Blood Count 4.71 M/mcL (4.19-5.50); Red Cell Distribution Width 12.8 % (11.5-14.5); Segmented Neutrophils % 61.5 %; White Blood Count 8.7 K/mcL (4.3-11.1)
[2020-06-27 22:08] LABS: INR 2.9; Prothrombin Time 32.3 Seconds (9.4-12.1)
[2020-06-27 22:19] LABS: BUN/Creatinine Ratio 24 (6-26); Blood Urea Nitrogen 24 mg/dL (8-23); Calcium 9.2 mg/dL (8.6-10.3); Carbon Dioxide 25 mEq/L (23-29); Chloride 103 mEq/L (98-107); Glucose 109 mg/dL (70-105); Osmolality,Calculated 287 (280-300); Potassium 4.1 mEq/L (3.5-5.1); Sodium 136 mEq/L (136-145); eGFR For African Americans > 60 (> 60); eGFR For Non-African Americans > 60 (> 60)
[2020-06-27 22:21] LABS: Troponin I < 0.03 ng/mL (< 0.04)
[2020-06-27] MEDS ORDERED: Naloxone 0.4 MG/ML INJ IVP PRN (23:35)
[2020-06-28 05:28] LABS: INR 2.9; Prothrombin Time 32.6 Seconds (9.4-12.1)
[2020-06-28] MEDS ORDERED: Regadenoson 0.4 MG/5 ML SYRINGE IVP ONE (07:38)
[2020-06-28] MEDS ORDERED: Perflutren Lipid Microsphere 1.3 ML in 0.9 % Sodium Chloride 8.7 ML IVP PRN (07:38)
[2020-06-28] MEDS ORDERED: Acetaminophen 325 MG TABLET PO PRN (15:01)
[2020-06-28] MEDS ORDERED: Warfarin perPT PO PRN (18:00)
[2020-06-28] MEDS ORDERED: *HR* Warfarin 10 MG TABLET PO ONE (18:00)
[2020-06-28] MEDS ORDERED: *HR* Warfarin 5 MG TABLET PO ONE (18:00)
[2020-06-29 03:37] LABS: Hematocrit 41.9 % (37.5-50.1); Mean Corpuscular HGB Conc 33.4 g/dL (31.6-35.5); Mean Corpuscular Hemoglobin 30.6 pg (28.0-33.3); Mean Corpuscular Volume 91.7 fL (83.0-100.0); Mean Platelet Volume 8.9 fL (9.4-12.4); Platelet Count 301 K/mcL (140-400); Red Blood Count 4.57 M/mcL (4.19-5.50); White Blood Count 7.3 K/mcL (4.3-11.1)
[2020-06-29 03:47] LABS: INR 2.5; Prothrombin Time 28.2 Seconds (9.4-12.1)
[2020-06-29 03:55] LABS: BUN/Creatinine Ratio 23 (6-26); Blood Urea Nitrogen 25 mg/dL (8-23); Calcium 8.9 mg/dL (8.6-10.3); Carbon Dioxide 26 mEq/L (23-29); Chloride 104 mEq/L (98-107); Chol/HDL Ratio 2.7 (0-4.9); Cholesterol 118 mg/dL (< 200); Glucose 118 mg/dL (70-105); HDL Cholesterol 44 mg/dL (40-59); LDL Cholesterol,Calculated 52 mg/dL (< 100); Osmolality,Calculated 287 (280-300); Sodium 136 mEq/L (136-145); Triglycerides 111 mg/dL (< 150); eGFR For African Americans > 60 (> 60); eGFR For Non-African Americans > 60 (> 60)
[2020-06-29] MEDS: Aspirin Enteric Coated 81 MG Tablet PO SCH (10:41)
[2020-06-29 11:17] LABS: Hematocrit 42.9 % (37.5-50.1); Hemoglobin 14.6 g/dL (12.9-16.9); Mean Corpuscular Hemoglobin 30.1 pg (28.0-33.3); Mean Corpuscular Volume 88.5 fL (83.0-100.0); Mean Platelet Volume 8.9 fL (9.4-12.4); Platelet Count 331 K/mcL (140-400); Red Blood Count 4.85 M/mcL (4.19-5.50); Red Cell Distribution Width 12.8 % (11.5-14.5)
[2020-06-29 11:27] LABS: Heparin anti-factor XA UFH < 0.04 IU/mL (0.30-0.70); INR 2.2; Prothrombin Time 25.3 Seconds (9.4-12.1)
[2020-06-29] MEDS: Isosorbide MONOnitrate (24 HR) 30 MG TAB.ER.24H PO SCH (12:10)
[2020-06-30 04:58] LABS: Hematocrit 40.8 % (37.5-50.1); Hemoglobin 13.5 g/dL (12.9-16.9); Mean Corpuscular HGB Conc 33.1 g/dL (31.6-35.5); Mean Corpuscular Hemoglobin 29.5 pg (28.0-33.3); Mean Corpuscular Volume 89.3 fL (83.0-100.0); Mean Platelet Volume 8.9 fL (9.4-12.4); Platelet Count 300 K/mcL (140-400); Red Blood Count 4.57 M/mcL (4.19-5.50); Red Cell Distribution Width 12.9 % (11.5-14.5); White Blood Count 7.4 K/mcL (4.3-11.1)
[2020-06-30 05:03] LABS: INR 1.7; Prothrombin Time 19.5 Seconds (9.4-12.1)
[2020-06-30] MEDS ORDERED: *HR* Heparin 5,000 UNIT/ML VIAL IVP PRN ×2 (05:13)
[2020-06-30 05:18] LABS: BUN/Creatinine Ratio 22 (6-26); Blood Urea Nitrogen 21 mg/dL (8-23); Calcium 8.8 mg/dL (8.6-10.3); Carbon Dioxide 24 mEq/L (23-29); Chloride 102 mEq/L (98-107); Glucose 112 mg/dL (70-105); Osmolality,Calculated 284 (280-300); Potassium 4.2 mEq/L (3.5-5.1); Sodium 135 mEq/L (136-145); eGFR For African Americans > 60 (> 60); eGFR For Non-African Americans > 60 (> 60)
[2020-06-30 05:32] LABS: Heparin anti-factor XA UFH < 0.04 IU/mL (0.30-0.70)
[2020-06-30] MEDS: Heparin 25,000UNIT/250ML 1/2NS 25,000 UNIT/250 ML IV.SOLN IVC SCH (05:47)
[2020-06-30] MEDS: Aspirin Enteric Coated 81 MG Tablet PO SCH (07:56)
[2020-06-30] MEDS: Isosorbide MONOnitrate (24 HR) 30 MG TAB.ER.24H PO SCH (07:56)
[2020-06-30] MEDS ORDERED: Heparin 1,000 UNITS/500 mL 500 ML ONE ×2 (09:51→10:47)
[2020-06-30] MEDS ORDERED: *HR* Heparin 10,000 UNIT/10 ML VIAL ONE ×3 (09:51→10:47)
[2020-06-30] MEDS ORDERED: ISOVUE-370 200 ML INFUS..BTL ONE ×2 (09:51→10:47)
[2020-06-30] MEDS ORDERED: Nitroglycerin 1,000 MCG/10 ML VIAL IV ONE ×2 (09:51→10:47)
[2020-06-30] MEDS ORDERED: 0.9 % Sodium Chloride 2,000 ML ONE ×2 (09:51→10:46)
[2020-06-30] MEDS ORDERED: *HR* Midazolam HCl 2 MG/2 ML VIAL ONE (10:41)
[2020-06-30] MEDS ORDERED: *HR* FentaNYL (PF) 100 MCG/2 ML VIAL ONE (10:41)
[2020-06-30] MEDS ORDERED: 0.9 % Sodium Chloride 1,000 ML ONE (11:40)
[2020-06-30] MEDS: 0.9 % Sodium Chloride 1,000 ML IVC SCH ×2 (11:44→20:17)
[2020-06-30] MEDS ORDERED: Warfarin perPT PO PRN (18:00)
[2020-06-30] MEDS ORDERED: *HR* Warfarin 10 MG TABLET PO ONE (18:00)
[2020-07-01 02:53] LABS: Hematocrit 41.4 % (37.5-50.1); Hemoglobin 13.9 g/dL (12.9-16.9); Mean Corpuscular HGB Conc 33.6 g/dL (31.6-35.5); Mean Corpuscular Hemoglobin 30.8 pg (28.0-33.3); Mean Corpuscular Volume 91.6 fL (83.0-100.0); Mean Platelet Volume 9.2 fL (9.4-12.4); Platelet Count 293 K/mcL (140-400); Red Blood Count 4.52 M/mcL (4.19-5.50); Red Cell Distribution Width 12.8 % (11.5-14.5); White Blood Count 8.4 K/mcL (4.3-11.1)
[2020-07-01 03:02] LABS: INR 1.4; Prothrombin Time 15.5 Seconds (9.4-12.1)
[2020-07-01 03:10] LABS: BUN/Creatinine Ratio 23 (6-26); Blood Urea Nitrogen 23 mg/dL (8-23); Calcium 8.5 mg/dL (8.6-10.3); Carbon Dioxide 23 mEq/L (23-29); Chloride 105 mEq/L (98-107); Glucose 113 mg/dL (70-105); Osmolality,Calculated 286 (280-300); Potassium 4.2 mEq/L (3.5-5.1); Sodium 136 mEq/L (136-145); eGFR For African Americans > 60 (> 60); eGFR For Non-African Americans > 60 (> 60)
[2020-07-01] MEDS: 0.9 % Sodium Chloride 1,000 ML IVC SCH (05:35)
[2020-07-01] MEDS: Aspirin Enteric Coated 81 MG Tablet PO SCH (08:32)
[2020-07-01] MEDS: Isosorbide MONOnitrate (24 HR) 30 MG TAB.ER.24H PO SCH (08:32)
[2020-07-01 09:34] LABS: Estimated Average Glucose 146 mg/dl; Hemoglobin A1C 6.7 %
[2020-07-01] MEDS: Heparin 25,000UNIT/250ML 1/2NS 25,000 UNIT/250 ML IV.SOLN IVC SCH (10:40)
[2020-07-01 10:43] VITALS: BP 110/67
[2020-07-01] MEDS ORDERED: *HR* Warfarin 10 MG TABLET PO ONE (18:00)
== END 2020-07-01 16:40 | disposition home or self-care (01) ==
LOC: EMEROOARM 21:19 → 3BNU 21:19 → SUATTDRO 23:16 → 3BNU 06-28 00:07
PROVIDERS: ADMIT Internal Medicine; ATTEND Registered Nurse

== ENCOUNTER 2021-06-03 06:16 | Inpatient (IN) ==
[2021-06-03] MEDS ORDERED: Ethanol\\Acetic Acid\\Na Ace\\Ben 1,000 ML IRRIG.SOLN IR ONE (06:45)
[2021-06-03] MEDS ORDERED: Tobramycin Sulf (Sterile) 1.2 GM VIAL ONE (06:46)
[2021-06-03] MEDS ORDERED: Vancomycin 1,000 MG VIAL ONE (06:46)
[2021-06-03] MEDS ORDERED: Gentamicin 410 MG in 0.9 % Sodium Chloride 100 ML IVPB ONE (06:51)
[2021-06-03] MEDS ORDERED: CeFAZolin Syr 2,000MG/20 ML 2,000 MG/20 ML SYRINGE IVPB ONE (06:51)
[2021-06-03] MEDS ORDERED: *HR* OxyCODONE Immed Rel 5 MG TABLET PO PRN (06:57)
[2021-06-03] MEDS ORDERED: Ondansetron 4 MG/2 ML VIAL IVP PRN ×2 (06:57→13:29)
[2021-06-03] MEDS ORDERED: Ringers Solution, Lactated 1,000 ML IVC SCH ×2 (07:00→13:29)
[2021-06-03] MEDS ORDERED: Lidocaine -MPF 2% 5 ML VIAL ONE ×2 (07:05→07:14)
[2021-06-03] MEDS ORDERED: *HR* FentaNYL (PF) 100 MCG/2 ML VIAL ONE ×2 (07:05→07:14)
[2021-06-03] MEDS ORDERED: *HR* Midazolam HCl 2 MG/2 ML VIAL ONE ×2 (07:06→07:14)
[2021-06-03] MEDS ORDERED: ROPIVACAINE/PF/NS 0.25% 1 EACH SYRINGE INTRAART ONE (07:07)
[2021-06-03] MEDS ORDERED: Ropivacaine/PF 0.5% 30 ML VIAL ONE (07:07)
[2021-06-03] MEDS ORDERED: *HR* Succinylcholine 200 MG/10 ML VIAL IVP ONE (07:14)
[2021-06-03] MEDS ORDERED: *HR* Propofol 200 MG/20 ML VIAL IVP ONE (07:14)
[2021-06-03] MEDS ORDERED: *HR* Rocuronium Bromide 50 MG/5 ML VIAL ONE ×2 (07:14→09:48)
[2021-06-03] MEDS ORDERED: Ondansetron 4 MG/2 ML VIAL ONE (07:14)
[2021-06-03] MEDS ORDERED: Lidocaine -MPF 4% 5 ML AMPUL ONE ×2 (07:14→07:25)
[2021-06-03] MEDS ORDERED: Tranexamic Acid 1,000 MG/10 ML VIAL ONE (07:23)
[2021-06-03] MEDS ORDERED: Povidone-Iodine 45 ML, Sodium Chloride IRRigation 1,000 ML IR ONE (07:45)
[2021-06-03] MEDS ORDERED: TOTAL JOINT MIXTURE (100ML) INTRAART ONE (07:45)
[2021-06-03] MEDS ORDERED: *HR* HYDROMORPHONE 2 MG/ML VIAL ONE (11:31)
[2021-06-03] MEDS ORDERED: Sugammadex Sodium 200 MG/2 ML VIAL IV ONE (11:56)
[2021-06-03] MEDS: *HR* FentaNYL (PF) 100 MCG/2 ML VIAL IVP PRN ×2 (12:10→12:35)
[2021-06-03] MEDS ORDERED: *HR* Promethazine 25 MG/ML VIAL IM PRN (13:29)
[2021-06-03] MEDS ORDERED: Sennosides 8.6 MG TABLET PO PRN (13:29)
[2021-06-03] MEDS ORDERED: D5% in Water 1,000 ML IVC PRN (13:29)
[2021-06-03] MEDS ORDERED: Naloxone 0.4 MG/ML INJ IVP PRN (13:29)
[2021-06-03] MEDS ORDERED: MOM Conc 10 ML UD.LIQ PO PRN (13:29)
[2021-06-03] MEDS ORDERED: *HR* Dextrose 50 % in Water (Syg) 50 ML SYRINGE IVP PRN (13:29)
[2021-06-03] MEDS ORDERED: Dextrose Gel 15 GM/37.5 ML TUBE PO PRN ×2 (13:29)
[2021-06-03] MEDS: Insulin LISPRO 300 UNITS/3 ML VIAL SUBQ SCH ×2 (14:22→19:07)
[2021-06-03 18:07] LABS: INR 1.1; Prothrombin Time 12.4 Seconds (9.4-12.1)
[2021-06-03] MEDS: CeFAZolin 2 GM/120 ML BAG IVPB SCH (19:01)
[2021-06-03] MEDS: *HR* OxyCODONE Immed Rel 5 MG TABLET PO PRN (19:04)
[2021-06-03] MEDS: Ascorbic Acid 500 MG TABLET PO SCH (19:04)
[2021-06-03] MEDS ORDERED: Warfarin perPT PO PRN (19:11)
[2021-06-03] MEDS ORDERED: *HR* Warfarin 10 MG TABLET PO ONE (19:15)
[2021-06-04] MEDS: CeFAZolin 2 GM/120 ML BAG IVPB SCH ×2 (00:17→09:05)
[2021-06-04 05:15] LABS: Basophils % 0.1 %; Hematocrit 36.2 % (37.5-50.1); Immature Granulocytes % 0.5 % (0-4); Lymphocytes # 1.3 K/mcL (0.6-4.6); Lymphocytes % 9.8 %; Mean Corpuscular HGB Conc 33.1 g/dL (31.6-35.5); Mean Corpuscular Hemoglobin 31.2 pg (28.0-33.3); Mean Platelet Volume 9.2 fL (9.4-12.4); Monocytes # 1.4 K/mcL (0.0-1.3); Monocytes % 10.6 %; Neutrophils # 10.4 K/mcL (1.6-8.9); Platelet Count 277 K/mcL (140-400); Red Blood Count 3.85 M/mcL (4.19-5.50); Red Cell Distribution Width 12.9 % (11.5-14.5); White Blood Count 13.1 K/mcL (4.3-11.1)
[2021-06-04 05:34] LABS: BUN/Creatinine Ratio 24 (6-26); Blood Urea Nitrogen 23 mg/dL (8-23); Calcium 8.5 mg/dL (8.6-10.3); Carbon Dioxide 26 mEq/L (23-29); Chloride 104 mEq/L (98-107); Glucose 121 mg/dL (70-105); Osmolality,Calculated 285 (280-300); Potassium 4.3 mEq/L (3.5-5.1); Sodium 135 mEq/L (136-145); eGFR For African Americans > 60 (> 60); eGFR For Non-African Americans > 60 (> 60)
[2021-06-04 05:39] LABS: INR 1.1; Prothrombin Time 12.5 Seconds (9.4-12.1)
[2021-06-04] MEDS: *HR* OxyCODONE Immed Rel 5 MG TABLET PO PRN ×2 (06:19→12:15)
[2021-06-04 07:46] VITALS: TEMP 97.6; O2SAT 96
[2021-06-04] MEDS: Ascorbic Acid 500 MG TABLET PO SCH (08:56)
[2021-06-04] MEDS ORDERED: Lisinopril-HCTZ 20-12.5mg TABLET PO SCH (09:00)
[2021-06-04] MEDS ORDERED: Isosorbide MONOnitrate (24 HR) 30 MG TAB.ER.24H PO SCH (09:00)
[2021-06-04] MEDS ORDERED: ASCORBIC ACID 500 MG PO SCH (09:00)
[2021-06-04] MEDS ORDERED: Multivit/Ca/Min/Fe/FA 1 TAB TABLET PO SCH (09:00)
[2021-06-04] MEDS ORDERED: Magnesium Oxide 400 MG TABLET PO SCH (09:00)
[2021-06-04] MEDS: Insulin LISPRO 300 UNITS/3 ML VIAL SUBQ SCH ×2 (09:17→12:03)
[2021-06-04 11:54] VITALS: BP 128/71; PULSE 65
[2021-06-04] MEDS ORDERED: FLU Vac QV 21-22 (6Month+)/PF 0.5 ML SYRINGE IM ONE (14:04)
[2021-06-04] MEDS ORDERED: *HR* Warfarin 10 MG TABLET PO ONE (18:00)
[2021-06-04] MEDS ORDERED: *HR* Enoxaparin 100 MG/ML SYRINGE SQ SCH (18:00)
[2021-06-05] MEDS ORDERED: *HR* Warfarin 5 MG TABLET PO ONE (18:00)
== END 2021-06-04 15:41 | disposition home or self-care (01) | DRG 467 ==
LOC: SDCAOSI 06:16 → 4WAOSI 13:23
PROVIDERS: ADMIT Orthopaedic Surgery; ATTEND Orthopaedic Surgery